=== PATIENT | male | born 1995 | race African-American/Black ===

== ENCOUNTER 2022-01-29 09:15 | Emergency (ER) | payer OTHER ==
[~2022-01-29] VITALS: Ht 170.2 cm; Wt 90.0 kg
[2022-01-29 12:14] LABS: BASO % 0.4 % (0.0-1.0); EOS # 0.2 10^3/uL (0.0-0.5); EOS % 4.7 % (0.0-3.0); HEMATOCRIT 49.8 % (42.0-52.0); HEMOGLOBIN 16.4 g/dl (13.5-17.5); LYMPH # 1.4 10^3/uL (1.5-5.0); LYMPH % 28.6 % (24.0-44.0); MEAN CORPUSCULAR HEMOGLOBIN 27.6 pg (27.0-33.0); MEAN CORPUSCULAR HGB CONC 32.9 g/dl (32.0-36.5); MEAN CORPUSCULAR VOLUME 83.8 fl (80.0-96.0); MONO # 0.3 10^3/uL (0.0-0.8); MONO % 6.3 % (2.0-8.0); NEUTROPHILS % 59.8 % (36.0-66.0); PLATELET COUNT, AUTOMATED 247 10^3/uL (150-450); RED BLOOD COUNT 5.94 10^6/uL (4.30-6.10); WHITE BLOOD COUNT 4.9 10^3/uL (4.0-10.0)
[2022-01-29 12:51] LABS: ALBUMIN 4.1 GM/DL (3.2-5.2); ALT/SGPT 38 U/L (12-78); BILIRUBIN,TOTAL 0.3 MG/DL (0.2-1.0); BLOOD UREA NITROGEN 14 MG/DL (7-18); CALCIUM LEVEL 9.6 MG/DL (8.5-10.1); CARBON DIOXIDE LEVEL 28 MEQ/L (21-32); CHLORIDE LEVEL 103 MEQ/L (98-107); CREATININE FOR GFR 1.21 MG/DL (0.70-1.30); GLOMERULAR FILTRATION RATE > 60.0 (>60); GLUCOSE, FASTING 84 MG/DL (70-100); LIPASE 162 U/L (73-393); POTASSIUM SERUM 9.6 MEQ/L (3.5-5.1); SODIUM LEVEL 131 MEQ/L (136-145); TOTAL PROTEIN 9.2 GM/DL (6.4-8.2)
[2022-01-29 13:02] LABS: MB/CK RELATIVE INDEX 0.23 (< OR =4)
[2022-01-29] MEDS ORDERED: NS 1,000 ML IV ONE (13:40)
[2022-01-29 15:05] VITALS: BP 136/82
== END 2022-01-29 15:07 | disposition home or self-care (01) ==
LOC: M ED 09:15
DX: R07.89 Other chest pain (principal); R11.0 Nausea

== ENCOUNTER 2022-11-27 23:05 | Emergency (ER) | payer OTHER ==
[~2022-11-27] VITALS: Ht 170.2 cm; Wt 77.3 kg
[2022-11-28] MEDS ORDERED: IBUP80TA PO (09:31)
[2022-11-28 09:52] VITALS: BP 129/75
== END 2022-11-28 10:25 | disposition home or self-care (01) ==
LOC: M ED 23:05
DX: S83.92XA Sprain of unspecified site of left knee, initial encounter (principal); V00.311A Fall from snowboard, initial encounter; F10.10 Alcohol abuse, uncomplicated; Z79.1 Long term (current) use of non-steroidal anti-inflammatories (NSAID)